=== PATIENT | male | born 1990 | race Caucasian/White ===

== ENCOUNTER 2017-11-23 13:56 | Outpatient (CLI) | payer OTHER ==
--- NOTE | 2017-11-25 03:50 | XRAY Report ---
EXAM: CERVICAL SPINE RADIOGRAPHY EXAM DATE: 11/23/2017 02:23 PM. CLINICAL HISTORY: NUMBNESS OF HANDS, SCIATIC NERVE PAIN. COMPARISONS: None. TECHNIQUE: 3 views. FINDINGS: Alignment: Normal. No spondylolisthesis or scoliosis. Bones: The cervical vertebral bodies and posterior elements are well visualized from the skull base t hrough C7-T1. No fractures or bone lesions. Disks: Normal. Disk heights are maintained. Facets: No degenerative disease. Soft Tissues: Normal. No prevertebral soft tissue swelling. The visualized lung apices are clear. IMPRESSION: Normal cervical spine radiography. [facility] Referring Provider Line: [phone] SITE ID: [id number]
--- NOTE | 2017-11-25 09:09 | XRAY Report ---
EXAM: LUMBOSACRAL SPINE RADIOGRAPHY EXAM DATE: 11/23/2017 02:24 PM. CLINICAL HISTORY: Numbness of hands, sciatic nerve pain. Right hip pain radiating to right leg for 2 months. COMPARISONS: None. TECHNIQUE: 2 views. FINDINGS: Alignment: Mild levoconvex scoliosis centered at the T12-L1 level. The Dyer angle from T11 to L2 is a pproximately 6 degrees. No spondylolisthesis. Bones: Five qhc-swb-sikxitl lumbar vertebral bodies are present. No fractures or bone lesions. Disks: Mild L5-S1 disk space narrowing. Facets: No degenerative changes. Sacroiliac Joints: Unremarkable. Soft Tissues: Normal. The visualized bowel gas pattern is normal. IMPRESSION: 1. Mild levoconvex scoliosis centered at the T12-L1 level. 2. Mild L5-S1 disk space narrowing. [facility] Referring Provider Line: [phone] SITE ID: [id number]
== END 2017-11-23 13:57 | disposition home or self-care (01) ==
LOC: DI 13:56
PROVIDERS: ATTEND Nurse Practitioner Family
DX: M41.85 Other forms of scoliosis, thoracolumbar region (principal); M54.30 Sciatica, unspecified side; R20.0 Anesthesia of skin
CPT/HCPCS: 72040; 72100

== ENCOUNTER 2018-02-07 09:17 | Outpatient (CLI) | payer OTHER | END 2018-02-07 09:18 | disposition critical access hospital (66) | LOC: EMS 09:17 | PROVIDERS: ATTEND Surgery | DX: R55 Syncope and collapse (principal); R19.7 Diarrhea, unspecified | CPT/HCPCS: A0425; A0427 ==

== ENCOUNTER 2018-02-07 09:41 | Emergency (ER) | payer OTHER ==
[2018-02-07] MEDS ORDERED: SODIUM CHLORIDE 0.9% 1,000 ML IV ONE (10:37)
--- NOTE | 2018-02-07 10:40 | ED Physician Documentation ---
PD HPI NVD - Stated complaint Stated Complaint: NEAR SYNCOPE - Chief complaint Chief Complaint: Cardiac - History obtained from History obtained from: Patient, EMS - History of Present Illness Timing - onset: How many days ago (3) Timing - duration: Days (3) Timing - details: Gradual onset, Still present Associated symptoms: Dizzy, Near syncope / syncope, Other (diarrhea) Contributing factors: Other (recent constipation) Improved by: Laying still Similar symptoms before: Has not had sx before Recently seen: Not recently seen - Additonal information Additional information: 27-year-old previously healthy male who has a lifelong history of intermittent constipation was constipated for 5 days and took some Ex-Lax and this caused significant diarrhea. The patient had diarrhea all day 2 days ago and then had a bit more yesterday and this morning he is having some issue with near syncope. He has come to the emergency department by ambulance with IV is running and at the time of my evaluation, he has had a liter of saline and feels back to normal. He denies any shortness of breath or chest pain he has not had syncope. Review of Systems Constitutional: denies: Fever Eyes: denies: Decreased vision Ears: denies: Ear pain Nose: denies: Congestion Throat: denies: Sore throat Cardiac: denies: Chest pain / pressure, Palpitations Respiratory: denies: Dyspnea, Cough GI: reports: Constipation, Diarrhea. denies: Abdominal Pain, Nausea, Vomiting : denies: Dysuria, Frequency Skin: denies: Rash Musculoskeletal: denies: Neck pain, Back pain, Extremity pain Neurologic: reports: Near syncope. denies: Generalized weakness, Focal weakness , Numbness, Headache, Head injury, LOC PD PAST MEDICAL HISTORY - Past Medical History Past Medical History: No - Past Surgical History Past Surgical History: Yes - Present Medications Home Medications: Ambulatory Orders Medication Instructions Recorded Confirmed No Known Home Medications [No 02/07/18 02/07/18 Known Home Medications] - Allergies Allergies/Adverse Reactions: Allergies Allergy/AdvReac Type Severity Reaction Status Date / Time No Known Drug Allergies Allergy Verified 02/07/18 09:49 - Social History Does the pt smoke?: No Smoking Status: Current some day smoker Does the pt drink ETOH?: Yes Does the pt have substance abuse?: No - Immunizations Immunizations are current?: Yes - POLST Patient has POLST: No PD ED PE NORMAL - Vitals Vital signs reviewed: Yes (hypertensive ) - General General: Alert and oriented X 3, No acute distress, Well developed/nourished - HEENT HEENT: Atraumatic, PERRL, EOMI - Neck Neck: Supple, no meningeal sign, No bony TTP - Cardiac Cardiac: RRR, No murmur - Respiratory Respiratory: No respiratory distress, Clear bilaterally - Abdomen Abdomen: Soft, Non tender - Back Back: No CVA TTP, No spinal TTP - Derm Derm: Normal color, Warm and dry, No rash - Extremities Extremities: No deformity, No edema, No calf tenderness / cord - Neuro Neuro: Alert and oriented X 3, 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, No motor deficit, No sensory deficit, Normal speech Eye Opening: Spontaneous Motor: Obeys Commands Verbal: Oriented GCS Score: 15 - Psych Psych: Normal mood, Normal affect Results - Vitals Vitals: Vital Signs - 24 hr 02/07/18 02/07/18 02/07/18 09:46 10:27 11:06 Temperature 36.8 C Heart Rate 57 L 56 L 57 L Respiratory 16 12 12 Rate Blood Pressure 130/92 H 117/76 113/65 O2 Saturation 100 99 100 Oxygen O2 Source Room air - Labs Labs: Laboratory Tests 02/07/18 02/07/18 02/07/18 10:50 10:50 10:50 WBC 6.3 RBC 4.22 L Hgb 13.5 L Hct 39.3 L MCV 93.1 MCH 32.1 H MCHC 34.4 RDW 12.8 Plt Count 194 MPV 8.1 Neut # (Auto) 4.7 Lymph # (Auto) 1.0 L [place] # (Auto) 0.5 Eos # (Auto) 0.0 Baso # (Auto) 0.0 Absolute Nucleated RBC 0.00 Nucleated RBC % 0.0 Sodium 138 Potassium 4.2 Chloride 107 Carbon Dioxide 25 Anion Gap 6.0 BUN 16 Creatinine 0.7 Estimated GFR (MDRD) 133 Glucose 93 Calcium 9.1 Total Bilirubin 1.0 AST 24 ALT 18 Alkaline Phosphatase 41 L Troponin I < 0.04 Total Protein 7.4 Albumin 4.4 Globulin 3.0 Albumin/Globulin Ratio 1.5 Lipase 39 Procedures - IVC sono (time) 1030 Bedside IVC sono: IVC measures (cm) (2.48), Euvolemia (afte one liter is in.) PD MEDICAL DECISION MAKING - ED course Complexity details: reviewed results, re-evaluated patient, considered differential, d/w patient ED course: 27-year-old male who has had diarrhea for 3 days has developed near syncope and is come to the emergency department with an IV line established and running. At the time of my evaluation patient is euvolemic and feeling back to normal. His electrolytes are checked. - Sepsis Event Vital Signs: Vital Signs - 24 hr 02/07/18 02/07/18 02/07/18 09:46 10:27 11:06 Temperature 36.8 C Heart Rate 57 L 56 L 57 L Respiratory 16 12 12 Rate Blood Pressure 130/92 H 117/76 113/65 O2 Saturation 100 99 100 Oxygen O2 Source Room air Departure - Departure Disposition: 01 Home, Self Care Clinical Impression: Dehydration Diarrhea Qualifiers: Diarrhea type: unspecified type Qualified Code(s): R19.7 - Diarrhea, unspecified Condition: Stable Instructions: ED Dehydration Follow-Up: REJI MOHAN MD [Primary Care Provider] -
[2018-02-07 10:57] LABS: BASOPHILS % (AUTO) 0.4 %; EOSINOPHILS % (AUTO) 0.7 %; HGB - HEMOGLOBIN 13.5 g/dL (14.0-18.0); LYMPHOCYTES % (AUTO) 15.2 %; MEAN CORPUSCULAR HEMOGLOBIN 32.1 pg (27.0-31.0); MEAN CORPUSCULAR HGB CONC 34.4 g/dL (32.0-36.0); MEAN CORPUSCULAR VOLUME 93.1 fL (80.0-94.0); MEAN PLATELET VOLUME 8.1 fL (7.4-11.4); MONOCYTES # (AUTO) 0.5 10^3/uL (0.0-1.0); MONOCYTES % (AUTO) 8.3 %; NEUTROPHILS # (AUTO) 4.7 10^3/uL (1.5-6.6); NEUTROPHILS % (AUTO) 75.4 %; PLT - PLATELET COUNT 194 10^3/uL (130-450); RED BLOOD COUNT 4.22 10^6/uL (4.70-6.10); RED CELL DISTRIBUTION WIDTH 12.8 % (12.0-15.0); WHITE BLOOD COUNT 6.3 x10^3/uL (4.8-10.8)
[2018-02-07 11:08] VITALS: BP 113/65
[2018-02-07 11:09] LABS: ALBUMIN 4.4 g/dL (3.2-5.5); ALBUMIN/GLOBULIN RATIO 1.5 (1.0-2.2); CALCIUM 9.1 mg/dL (8.5-10.3); CREATININE 0.7 mg/dL (0.6-1.2); TOTAL PROTEIN 7.4 g/dL (6.7-8.2)
== END 2018-02-07 11:31 | disposition home or self-care (01) ==
LOC: EDUNIT# → SUPCPDRO 09:41 → ED 09:41
DX: E86.0 Dehydration (principal); R19.7 Diarrhea, unspecified; F17.200 Nicotine dependence, unspecified, uncomplicated
CPT/HCPCS: 36415; 80053; 83690; 84484; 85025; 99283